=== PATIENT | female | born 2000 | race Caucasian/White ===

== ENCOUNTER → 2021-09-30 | Day surgery (SDC) | payer OTHER ==
[~2021-09-30] VITALS: Ht 167.6 cm; Wt 60.0 kg
[~2021-09-30] MED LIST: IV RINGERS,LACTATED 1000ML 1,000 ML IV SCH; LIDOCAINE 2% PF 5 ML VIAL. ONE; PROPOFOL 10 MG/ML (20ML) VIAL. IV ONE
[2021-09-30 07:46] VITALS: BP 111/68
[2021-09-30 09:30] VITALS: BP 98/58
--- NOTE | 2021-10-01 01:58 | CONS ---
DATE OF CONSULTATION: 09/30/2021 HISTORY AND PHYSICAL REFERRING PHYSICIAN: Shannon rGey. REASON: Abdominal pain. HISTORY OF PRESENT ILLNESS: A 21-year-old female with past medical history noncontributory, who was seen with epigastric pain exacerbated by eating. He has had several discrete episodes lasting several hours with leading to ER visits and he also ____ during the attacks, OTC remedies have been unhelpful. Family history is positive for gallbladder disease in multiple family members. She is 1, para 1 with recent issues, she requests additional evaluation. Previous hepatobiliary imaging has been unhelpful and will be reviewed. PAST MEDICAL HISTORY: Noncontributory. ALLERGIES: AZITHROMYCIN. MEDICATIONS: None. FAMILY AND SOCIAL HISTORY: Significant for hypertension, gallbladder disease with her mother and grandmother and grandfather. PAST SURGICAL HISTORY: Appendectomy, tonsillectomy. REVIEW OF SYSTEMS: Per records. PHYSICAL EXAMINATION: GENERAL: Reveals a well-nourished, well-developed female, alert, cooperative, in no acute distress. VITAL SIGNS: Temperature is 97, pulse 90, respiratory rate 20. LUNGS: Clear. CARDIOVASCULAR: Reveals an S1, S2, without S3, S4 or appreciable murmur. ABDOMEN: Reveals a soft abdomen with epigastric tenderness to deep palpation without appreciable hepatosplenomegaly. EXTREMITIES: Reveals no cyanosis, clubbing or edema. IMPRESSION AND PLAN: Epigastric abdominal pain, etiology to be determined. Differential includes gastroparesis, peptic ulcer disease, celiac and hepatobiliary disease. Therefore, I recommend upper endoscopy to further assess. Risks and benefits were discussed. The patient is willing to proceed. IRAIS/KELLIE DR: Rosita TID: [id number]
--- NOTE | 2021-10-01 14:11 | PATHOLOGY ---
[facility] Accession Number: [id number] . 01 Material submitted: . gastrointestinal site - GASTRIC BIOPSIES . 01 Clinical history: . ABD PAIN/N EGD . 02 Diagnosis: Gastric biopsies: - Congestion and slight chronic inflammation. (JPM:laura; 10/01/2021) S 10/01/2021 1032 Local . 02 Comment: Sections of the gastric biopsy reveal segments of gastric body and antral/body transition mucosa showing congestion and slight chronic inflammation. A properly controlled immunoperoxidase stain for Helicobacter is negative for Helicobacter organisms. (JPM:laura; 10/01/2021) . Special stain performed: Immunoperoxidase stain for Helicobacter on A1 . 02 Electronically signed: . Loc Portillo MD, Pathologist NPI- [id number] . 01 Gross description: . The specimen is received in formalin, labeled "Larry, Mila, gastric bx's". Received are 4 segments of pale francis tissue ranging in size from 0.2-0.6 cm in maximum dimensions. The specimen is entirely submitted in cassette A1. ([facility]; 09/30/2021) NRI/NRI 09/30/2021 1849 Local . 02 Pathologist provided ICD-10: K29.50 . 02 CPT . 499617, [id number] Specimen Comment: A courtesy copy of this report has been sent to [phone] Specimen Comment: [id number] Specimen Comment: Report sent to / DR KANG Specimen Comment: A duplicate report has been generated due to demographic updates. Performed at: [address], [place], [place] [id number] MD Thien Larsen MD Phone: [phone] Performed at: 02 [facility] [address], [place] [id number] MD Loc Portillo MD Phone: [phone]
== END | disposition home or self-care (01) ==
LOC: ENDOS 07:22
PROVIDERS: ATTEND Internal Medicine Gastroenterology
DX: R10.13 Epigastric pain (principal); K29.50 Unspecified chronic gastritis without bleeding; K31.89 Other diseases of stomach and duodenum; Z79.899 Other long term (current) drug therapy; Z98.890 Other specified postprocedural states; Z88.8 Allergy status to other drugs, medicaments and biological substances
CPT/HCPCS: 43239; 81025; J2704